=== PATIENT | male | born 1960 | race Hispanic/Latino ===

== ENCOUNTER 2018-12-15 06:14 | Day surgery (SDC) | payer BC ==
[2018-12-12 14:16] VITALS: BMI 29.5
[2018-12-12 15:35] LABS: #Eosinphils 0.1 thou/uL (0.0-0.7); #Lymphocytes 0.7 thou/uL (1.20-3.40); #Monocytes 0.5 thou/uL (0.11-0.59); #Neutrophils 6.9 thou/uL (1.40-6.50); %Basophils 0.3 % (0.0-1.0); %Eosinophils 1.1 % (0.0-10.0); %Lymphocytes 8.5 % (21.0-51.0); %Monocytes 6.3 % (0.0-10.0); %Neutrophils 83.8 % (42.0-75.0); Hemoglobin 14.9 g/dL (14.0-18.0); Mean Corpuscular HGB CONC 32.6 g/dL (32.0-36.0); Mean Corpuscular Hemoglobin 32.1 pg (27.0-31.0); Mean Corpuscular Volume 98.7 fL (78.0-98.0); Mean Platelet Volume 7.1 fL (7.4-10.4); Platelet Count 218 thou/uL (130-400); RBC Distribution Width 12.8 % (11.5-14.5); Red Blood Cell (RBC) Count 4.64 mill/uL (4.70-6.10); White Blood Cell (WBC) Count 8.3 thou/uL (4.8-10.8)
--- NOTE | 2018-12-12 15:55 | RAD ---
CHEST ONE VIEW: 12/12/18 HISTORY: Cardiac catheterization. COMPARISON: None. FINDINGS: A monitoring device projects over the left hemithorax. Lungs are clear. No pneumothorax. No effusion. No acute osseous abnormality. IMPRESSION: No acute intrathoracic abnormality. POS: HOME
[2018-12-12 16:00] LABS: Anion Gap 11 mmol/L (10-20); BUN (Urea Nitrogen) 24 mg/dL (8.4-25.7); Calc. Creatinine Clearance 127 mL/min (70-130); Calcium 9.7 mg/dL (7.8-10.44); Carbon Dioxide 28 mmol/L (22-29); Chloride 102 mmol/L (98-107); Estimated GFR-MDRD Greater than 90; Glucose 109 mg/dL (70-105); Potassium 3.4 mmol/L (3.5-5.1); Sodium 138 mmol/L (136-145)
[2018-12-15] MEDS ORDERED: Heparin 0 ML ONE (08:15)
[2018-12-15] MEDS ORDERED: CEFAZOLIN 1 GM VIAL ONE (08:15)
[2018-12-15] MEDS ORDERED: Gentamicin 80 MG/2 ML VIAL ONE (08:15)
[2018-12-15] MEDS ORDERED: Midazolam HCl 2 mg/2 ml Vial ONE (09:02)
[2018-12-15] MEDS ORDERED: Fentanyl 100 MCG/2 ML VIAL ONE (09:02)
[2018-12-15] MEDS ORDERED: Lidocaine 1% (PF) 30 ML VIAL ONE ×2 (09:08→09:50)
[2018-12-15] MEDS ORDERED: Acetaminophen/Codeine 30-300mg Tablet ONE (11:19)
--- NOTE | 2018-12-15 12:22 | RAD ---
CHEST ONE VIEW: HISTORY: Status post left pacemaker placement. COMPARISON: 12/12/2018 FINDINGS: A left transvenous pacemaker has been placed. Heart size is within normal limits. There is no pneum othorax or pleural effusion. The previously noted loop recorder has been removed. IMPRESSION: 1. Placement of left transvenous pacemaker. 2. Borderline heart size. 3. No pneumothorax, pleural effusion, or other acute process. POS: OFF
[2018-12-15] MEDS ORDERED: Iopamidol 370 76% 50 ML VIAL FS ONE (12:35)
--- NOTE | 2018-12-15 17:24 | EKG ---
Test Reason : S/P PACEMAKER Blood Pressure : / mmHG Vent. Rate : 060 BPM Atrial Rate : 060 BPM P-R Int : 000 ms QRS Dur : 114 ms QT Int : 418 ms P-R-T Axes : 000 -57 005 degrees QTc Int : 418 ms Atrial-paced rhythm with prolonged AV conduction Left anterior fascicular block Poor anterior R wave progression cannor r/o prior anterior SD Abnormal ECG When compared with ECG of 12-DEC-2018 14:54, Electronic atrial pacemaker has replaced Sinus rhythm Confirmed by DR. Senthil LASSITER ([id number]) on 12/15/2018 5:23:49 PM Referred By: CATY Confirmed By:DR. Senthil LASSITER
--- NOTE | 2018-12-16 16:28 | CCL ---
DATE OF PROCEDURE: 12/15/18 PROCEDURE: Dual chamber pacemaker placement, MR compatible. Left arm venogram, removal of implantable loop recorder. INDICATION: Syncope and 5 second sinus pauses. DESCRIPTION OF PROCEDURE: The patient was brought to the [facility] and the left subclavian area was prepped and draped. 1% Lidocaine was infiltrated. Using a 50/50 mix of saline and contrast, left arm venography was performed and the subclavian vein was identified. The J-wire was then placed into the left subclavian vein. Using electrocautery for hemostasis, the pacemaker pocket was manufactured using blunt and sharp dissection. An antibiotic solution soaked gauze was placed in the subcutaneous pocket. A 9-Armenian sheath would not advance all the way into the left subclavian with there being a tortuosity there. So a 7-Armenian sheath easily entered the subclavian vein. A second J-wire was placed into the 7-Armenian sheath and the sheath was removed. Two 7-Armenian sheaths were then used over each wire individually to insert the atrial and ventricular leads. The right ventricular lead was advanced into the RV apex and the right atrial lead was screwed into the right atrium. The right ventricular lead was screwed into the right ventricular apex. R-wave 11.2, impedance 945, threshold 1.2 volts. For the atrial lead, the P- wave 1.2, impedance 548, threshold 0.9 volts. The tabs on the suture tie-downs were removed and both leads were secured in place with two sutures of 0 silk. The antibiotic solution soaked gauze was removed and the subcutaneous pocket was irrigated with copious amounts of antibiotic solution. The leads were attached to the pacemaker generator and this was placed into the subcutaneous pocket and secured in place with one suture of 0 silk. The incision was then closed using two layers of running 3-0 Vicryl, one layer of running 4-0 Vicryl. Dermabond was placed on the incision. Attention was then turned to the implantable loop recorder in the left anterior chest. The area was anesthetized with 1% lidocaine. Using sharp dissection, the Linq was exposed and removed with a hemostat. This was then closed with 4-0 Vicryl and Dermabond. The patient tolerated the procedure well. [email or web address]
== END 2018-12-15 16:00 | disposition home or self-care (01) ==
LOC: CCL 06:14
PROVIDERS: ATTEND Internal Medicine Cardiovascular Disease
PROC: 0JH606Z Insertion of Pacemaker, Dual Chamber into Chest Subcutaneous Tissue and Fascia, Open Approach (ICD-10-PCS; principal; 2018-12-15)
PROC: 02H63JZ Insertion of Pacemaker Lead into Right Atrium, Percutaneous Approach (ICD-10-PCS; principal; 2018-12-15)
PROC: 02HK3JZ Insertion of Pacemaker Lead into Right Ventricle, Percutaneous Approach (ICD-10-PCS; principal; 2018-12-15)
PROC: 0JPT32Z Removal of Monitoring Device from Trunk Subcutaneous Tissue and Fascia, Percutaneous Approach (ICD-10-PCS; principal; 2018-12-15)
DX: R55 Syncope and collapse (principal); I49.5 Sick sinus syndrome; I10 Essential (primary) hypertension; E78.00 Pure hypercholesterolemia, unspecified; Z79.52 Long term (current) use of systemic steroids; Z79.899 Other long term (current) drug therapy
CPT/HCPCS: 33211; 33286; 36005; 71045; 75820; 93005; 93010; 99152; 99153; C1785; C1898; J0690; J1580; J1644; J2001; J2250; J3010; Q9967